=== PATIENT | female | born 1960 | race Caucasian/White ===

== ENCOUNTER 2019-11-04 12:54 | Outpatient (RCR) | payer BC, SELFPAY | END 2019-11-26 00:01 | LOC: SPT 12:54 | PROVIDERS: Family Provider Family Medicine; Visit Provider Licensed Practical Nurse | DX: M50.020 Cervical disc disorder with myelopathy, mid-cervical region, unspecified level (principal) | CPT/HCPCS: 97110 ×2; 97162; G0283 ×2 ==

== ENCOUNTER → 2019-12-19 07:56 | Outpatient (BNVA) | payer BC, SELFPAY | PROVIDERS: Family Provider Family Medicine; PCP Family Medicine; Referring Provider Licensed Practical Nurse; Visit Provider Psychiatry & Neurology Neurology | DX: G56.03 Carpal tunnel syndrome, bilateral upper limbs (principal) | CPT/HCPCS: 95886; 95910 ==

== ENCOUNTER 2019-12-27 10:02 | Outpatient (RCR) | payer BC, SELFPAY | END 2019-12-27 10:10 | disposition home or self-care (01) | LOC: SPT 10:02 | PROVIDERS: Family Provider Family Medicine; PCP Family Medicine; Visit Provider Licensed Practical Nurse | DX: M50.020 Cervical disc disorder with myelopathy, mid-cervical region, unspecified level (principal) | CPT/HCPCS: 97110; G0283 ==

== ENCOUNTER 2020-01-30 07:40 | Day surgery (SDC) | payer BC, SELFPAY ==
[2020-01-29 17:31] VITALS: BMI 32.2
[2020-01-30 08:04] VITALS: BP 134/86; PULSE 71; RESP 18; TEMP 36.2; O2SAT 95
[2020-01-30 08:24] LABS: Glucose Point of Care 215 mg/dL (70-110)
[2020-01-30] MEDS: sodium chloride 0.9% 1,000 ML 30 ML IV (08:29)
--- NOTE | 2020-01-30 08:40 | ANES.PREANE2 ---
Pre-Anesthetic Assessment Pre-Anesthetic Assessment: Height/Weight: Height 1.6 m Weight 82.554 kg Temp Pulse Resp BP Pulse Ox 97.1 F L 71 18 134/86 95 01/30/20 08:04 01/30/20 08:04 01/30/20 08:04 01/30/20 08:04 01/30/20 08:04 Preop Diagnosis: Bilateral carpal tunnel syndrome Proposed Procedure: Operation Date: 01/30/20 09:10 Proposed Procedures p Median Nerve Release/open right wrist 41082 G56.03(Right) - Ayden Werner MD Last intake: Intake Last Liquid Date 01/29/20 Last Liquid Time 19:00 Last Solid Date 01/29/20 Last Solid Time 19:00 Social: Packs per day: 1/5 Pack years: 4 Comment: quit of year Exam: Pre-Anes Outpt Exam: alert, oriented x 3, clear to auscultation bilaterally and regular rate & rhythm Airway: Submandibular: WNL Cervical ROM: WNL MP: 2 Dentition: Caps Additional comments: left top 2nd and a molar intact/not loose CV/HEM: CV/HEM: HTN Comments: rx x 2 years 2 blocks/FOS without angina/MONTERO Metabolic: Metabolic: DM (rx'd 20y, normally 150-250) Anesthetic Plan: ASA status: 3 Anesthesia: MAC Meds/Allergies Current Medications: Current Medications Generic Name Dose Route Start Last Admin Trade Name Freq PRN Reason Stop Dose Admin Sodium Chloride 1,000 mls @ 30 ml s/hr 01/30/20 08:00 01/30/20 08:29 Sodium Chloride 0.9% IV 01/31/20 07:59 30 mls/hr .Q24H NADYA Administration PFSH Anesthesia PFSH: Social History Smoking and tobacco status: never smoked Alcohol intake: never Lives independently: Yes Marital status: / Current occupational status: retired History of recent travel: No Data Anesthesia Other Labs: Laboratory Results - last 48 hr 01/30/20 08:21 POC Glucose 215 Cardiac Studies: No Data to Display
[2020-01-30 08:51] LABS: Anion Gap 17.6 (5-19); Blood Urea Nitrogen 18 mg/dL (6-20); Calcium 9.8 mg/dL (8.5-10.5); Carbon Dioxide 25 mmol/L (22-29); Chloride 99 mmol/L (98-107); Glomerular Filtration Rate 85.6 mL/min (90-130); Glucose 241 mg/dL (65-115); Osmolality Calculated 288 mOsm/kg (285-295); Potassium 4.6 mmol/L (3.5-5.1); Sodium 137 mmol/L (136-145)
--- NOTE | 2020-01-30 09:03 | P.HPUD_ITS ---
Surgery/Procedure H&P Update DATE OF PROCEDURE: January 30, 2020 DATE H&P PERFORMED: 01/29/20 H&P UPDATE INFORMATION: I have reviewed H&P completed within last 30 days, No changes to prior documentation and [place] [facility] [place] indicated PREOP DIAGNOSIS: Bilateral carpal tunnel syndrome PRIMARY INDICATION FOR PROCEDURE: Pain PLANNED PROCEDURE: Operation Date: 01/30/20 09:10 Proposed Procedures Median Nerve Release/open right wrist 44220 G56.03(Right) - Ayden Werner MD
--- NOTE | 2020-01-30 09:25 | P.OP_ITS ---
Brief Operative Note: Date of procedure: 01/30/20 Pre-op diagnosis: Median nerve entrapment at the right wrist Post-op diagnosis: same Procedure Done: Open release of the median nerve at the right wrist. Surgeon: Ayden Werner Estimated blood loss (mL): 5 Complications: None Post-op Plan: Home per Ambulatory Surgery protocol. Condition: stable Disposition: same day Coding Level of Care Code Acute Cardiology Clinical Consultant for Lakisha Sifuentes
[2020-01-30] MEDS: neomycin-poly-bacitracin oint 28 gm 1 APPLIC TOPICAL (09:54)
[2020-01-30 10:17] VITALS: BP 115/74; PULSE 86; RESP 18; TEMP 36.1; O2SAT 94
[2020-01-30 10:56] VITALS: BP 125/87; PULSE 72; RESP 18; TEMP 36.3
--- NOTE | 2020-01-30 12:20 | PM.OP ---
Operative Report Date of procedure: January 30, 2020 Pre-op Diagnosis: Bilateral carpal tunnel syndrome Post-op diagnosis: same Procedure Done: Open release of the median nerve at the right wrist. Pathology: none sent Surgeon: Ayden Werner Anesthesia: MAC Estimated blood loss (mL): 5 IV fluids (mL): 400 Complications: None Condition: stable Disposition: same day Brief History: The patient is a 59-year-old female with symptomatic, electrodiagnostically confirmed bilateral carpal tunnel syndrome. Symptoms progressed and were refractory to conservative treatment measures, including wrist splinting. Electrodiagnostic studies identified moderately severe median nerve entrapment at the wrists. After review of the diagnostic and treatment options with the risks/potential benefits/rationale for each, the patient requested to proceed with open release of the median nerve at the right wrist. Surgical intervention on the left wrist is anticipated after adequate recovery from surgery on the right. Procedure: After routine preoperative evaluation and informed consent were obtained, the patient was taken to the Operating Room and positioned supine on the operating table. She was maintained under intravenous sedation by Anesthesia personnel. The right upper extremity was extended on an arm board. A proposed palmar incision was marked with a sterile skin marker. The extremity was scrubbed with Betadine and prepped with DuraPrep from the fingertips to the axilla. Sterile towels, sterile drapes, and a sterile stockinette were utilized for draping of the operative field. An opening was fashioned in the sterile stockinette over the palmar aspect of the right hand. An Ioban surgical barrier was placed. The proposed incision site was infiltrated with 1% Xylocaine with Epinephrine. A skin incision was made and carried down into the subcutaneous tissues. Self-retaining retractors were placed. The thickened transverse carpal ligament was divided over the course of the median nerve in the palm. The ligament was divided distally until the palmar fat pad was encountered. Proximally, the ligament was divided with fine Metzenbaum scissors to a point approximately 2 centimeters above the wrist crease. There were scattered epineural adhesions, which were treated with limited adhesiolysis. There was no evidence of residual median nerve impingement or entrapment within the visualized segment of the nerve at the completion of the procedure. The wound was then copiously irrigated with antibiotic irrigation. Hemostasis was ensured with the bipolar electrocautery. Wound closure was performed as a single layer utilizing 4-0 Nylon in a simple interrupted fashion. Antibiotic ointment was placed along the incision line. A bulky hand dressing was fashioned utilizing a combination of Kerlix fluffs, a Kerlix wrap, and an JYOTI/elastic bandage. The patient was transported to the Ambulatory Surgery Area for discharge home, as per the Ambulatory Surgery protocol. The patient tolerated the procedure well. All sponge, needle, and instrument counts were correct at the completion of the procedure.
== END 2020-01-30 11:31 | disposition home or self-care (01) ==
PROVIDERS: Anesthesiology; Family Provider Family Medicine; PCP Family Medicine; Visit Provider Specialist
PROC: (CPT 64721; principal; 2020-01-30 09:10)
DX: G56.03 Carpal tunnel syndrome, bilateral upper limbs (principal); F17.220 Nicotine dependence, chewing tobacco, uncomplicated; I10 Essential (primary) hypertension; E11.9 Type 2 diabetes mellitus without complications; Z79.4 Long term (current) use of insulin
CPT/HCPCS: 64721; 12345; 36415; 36416; 80048; 82962; J0690; J2001; J2250; J2704; J3490; J7030

== ENCOUNTER 2020-03-23 13:09 | Day surgery (SDC) | payer BC, SELFPAY ==
[2020-03-20 10:26] VITALS: BMI 32.5
[2020-03-23 13:15] VITALS: BP 155/95; PULSE 85; TEMP 36.6; O2SAT 95
--- NOTE | 2020-03-23 13:46 | P.HPUD_ITS ---
Surgery/Procedure H&P Update DATE OF PROCEDURE: March 23, 2020 DATE H&P PERFORMED: 03/19/20 H&P UPDATE INFORMATION: I have reviewed H&P completed within last 30 days and [place] [facility] [place] date indicated PREOP DIAGNOSIS: Median nerve entrapment at the left wrist PRIMARY INDICATION FOR PROCEDURE: pain/numbness PLANNED PROCEDURE: Operation Date: 03/23/20 14:45 Proposed Procedures Open Release of Median Nerve Release left wrist 85010 G56.01(Left) - Ayden Werner MD
--- NOTE | 2020-03-23 13:48 | PM.OP2 ---
 Brief Operative Note: Date of procedure: 03/23/20 Pre-op diagnosis: Median nerve entrapment at left wrist Post-op diagnosis: same Procedure Done: Open release of median nerve at left wrist. Surgeon: Ayden Werner Estimated blood loss (mL): 5 Complications: None Post-op Plan: Home Condition: stable Disposition: same day Coding Level of Care Code Acute Wringer And Setter for Lakisha Sifuentes
--- NOTE | 2020-03-23 13:55 | ANES.PREANE2 ---
Pre-Anesthetic Assessment Pre-Anesthetic Assessment: Height/Weight: Height 1.6 m Weight 83.461 kg Preop Diagnosis: Median nerve entrapment at the left wrist Proposed Procedure: Operation Date: 03/23/20 14:45 Proposed Procedures p Open Release of Median Nerve Release left wrist 09977 G56.01(Left) - Ayden Werner MD Familial anesthetic complications: None Was Beta Pan taken within 24 hours: N/A Last intake: NPo > 8 hrs Social: Social History: No alcohol and No tobacco Exam: Pre-Anes Outpt Exam: alert, oriented x 3, clear to auscultation bilaterally and regular rate & rhythm Airway: Cervical ROM: WNL MP: 2 Dentition: Full Pulmonary: Pulmonary: None reported CV/HEM: CV/HEM: HTN : : None reported Hepatic: Hepatic: None reported GI: GI: None reported Metabolic: Metabolic: DM and Morbid obesity Musc/skel: Comments: shoulder (r) painful - feels like its broken - no position of the arm makes it worse. Neuropsych: Neuropsych: Neuropathy Comments: R arm Anesthetic Plan: ASA status: 2 Anesthesia: General Risk of > 500 ml blood loss (7ml/kg in children): No PFSH Anesthesia PFSH: Social History Smoking and tobacco status: never smoked Alcohol intake: never Lives independently: Yes Marital status: / Current occupational status: retired History of recent travel: No Data Anesthesia Cardiac Studies: No Data to Display
[2020-03-23 14:10] LABS: Glucose Point of Care 183 mg/dL (70-110)
[2020-03-23] MEDS: sodium chloride 0.9% 1,000 ML 30 ML IV (14:25)
[2020-03-23] MEDS: neomycin-poly-bacitracin oint 28 gm 1 APPLIC TOPICAL (15:04)
[2020-03-23 15:25] VITALS: BP 108/63; PULSE 78; RESP 18; TEMP 36.2
[2020-03-23 15:54] VITALS: BP 131/85; PULSE 79; RESP 18
--- NOTE | 2020-03-23 17:00 | PM.OP ---
Operative Report Date of procedure: March 23, 2020 Pre-op Diagnosis: Median nerve entrapment at the left wrist Post-op diagnosis: same Procedure Done: Open release of the median nerve at the left wrist. Pathology: none sent Surgeon: Ayden Werner Anesthesia: MAC and Local Estimated blood loss (mL): 5 IV fluids (mL): 300 Complications: none Condition: stable Disposition: same day Brief History: The patient is a 59-year-old white female with symptomatic, electrodiagnostically confirmed median nerve entrapment at the wrists. Conservative management failed to provide adequate lasting symptom relief. She underwent open release of the median nerve at the right wrist on 01/30/2020, with benefit noted. After review of the diagnostic and treatment options with the risks/potential benefits/rationale for each, the patient requested to proceed with open release of the median nerve at the left wrist. Procedure: After routine preoperative evaluation and informed consent were obtained, the patient was taken to the Operating Room and positioned supine on the operating table. Anesthesia personnel monitored the patient, and maintained intravenous sedation. The left upper extremity was extended on an arm board. The proposed skin incision was marked with a sterile skin marker, beginning near the wrist crease and extending distally along a palmar crease to the base of the thumb. The left upper extremity was scrubbed with Betadine and prepped with DuraPrep from the fingertips to the axilla. A sterile stockinette was placed over the left upper extremity. The patient was draped with sterile towels and drapes. An opening was fashioned in the sterile stockinette over the palmar aspect of the left hand. Ioban surgical barrier was applied. The proposed incision site was infiltrated with 1% Xylocaine with Epinephrine. A skin incision was made with a sharp knife and carried down into the subcutaneous tissues. The markedly thickened transverse carpal ligament was identified and divided over the course of the median nerve in the palm. The nerve was directly visualized as the ligament was divided. Decompression was extended distally until the palmar fat pad was encountered. Proximally, the decompression was extended above the wrist crease utilizing fine Metzenbaum scissors. Decompression was verified to be adequate for a distance of greater than 2 centimeters proximal to the wrist crease. At the completion of the decompression, there was no evidence of residual impingement or tethering of the median nerve at the surgical site. The wound was then copiously irrigated with antibiotic irrigation. Hemostasis was ensured with the bipolar electrocautery. Wound closure was performed as a single layer utilizing 4-0 Nylon in a simple interrupted fashion. Antibiotic ointment was placed along the incision line. A bulky hand dressing was fashioned utilizing Kerlix fluffs, a Kerlix wrap, and an JYOTI/elastic bandage. The patient was transferred onto the transport cart and returned to the Ambulatory Surgery Area for discharge home, as per the Ambulatory Surgery protocol. She tolerated the procedure well. All sponge, needle and instrument counts were correct at the completion of the procedure.
== END 2020-03-23 16:25 ==
PROVIDERS: Family Provider Family Medicine; PCP Family Medicine; Visit Provider Specialist
PROC: (CPT 64721; principal; 2020-03-23 14:35)
DX: G56.02 Carpal tunnel syndrome, left upper limb (principal); I10 Essential (primary) hypertension; E66.01 Morbid (severe) obesity due to excess calories; Z68.32 Body mass index [BMI] 32.0-32.9, adult; E11.40 Type 2 diabetes mellitus with diabetic neuropathy, unspecified; Z79.4 Long term (current) use of insulin
CPT/HCPCS: 64721; 12345; 36416; 82962; J0690; J2001; J2250; J2704; J3010; J3490; J7030

== ENCOUNTER → 2020-05-12 08:49 | Outpatient (BNVA) | payer BC, SELFPAY | PROVIDERS: Family Provider Family Medicine; PCP Family Medicine; Referring Provider Family Medicine; Visit Provider Orthopaedic Surgery | DX: M25.511 Pain in right shoulder (principal) | CPT/HCPCS: 73030 ==

== ENCOUNTER → 2020-08-04 10:03 | Outpatient (BNVA) | payer BC, SELFPAY | PROVIDERS: Family Provider Family Medicine; PCP Family Medicine; Visit Provider Internal Medicine | DX: Z11.59 Encounter for screening for other viral diseases (principal) | CPT/HCPCS: 87635 ==

== ENCOUNTER 2020-08-06 08:40 | Day surgery (SDC) | payer BC, SELFPAY ==
[2020-08-05 09:45] VITALS: BMI 31.8
[2020-08-06] VITALS (7 sets, daily range): BP systolic 129–159; BP diastolic 67–92; PULSE 70–78; RESP 16–20; TEMP 36.1–36.2; O2SAT 93–100
--- NOTE | 2020-08-06 09:19 | W.PM.OPSUD ---
Surgery/Procedure H&P Update DATE OF PROCEDURE: August 06, 2020 DATE H&P PERFORMED: 07/21/20 PREOP DIAGNOSIS: Right rotator cuff PLANNED PROCEDURE: Operation Date: 08/06/20 10:45 Proposed Procedures p Shoulder Arthroscopy 93878 M75.101(Right) - Lance Baires MD s Rotator Cuff Repair(Right) - Lance Baires MD
[2020-08-06 09:23] LABS: Glucose Point of Care 138 mg/dL (70-110)
[2020-08-06] MEDS: sodium chloride 0.9% 1,000 ML 30 ML IV (09:25)
--- NOTE | 2020-08-06 09:39 | P.ANESASSM_ITS ---
Pre-Anesthetic Assessment Pre-Anesthetic Assessment: Height/Weight: Height 1.6 m Weight 81.647 kg Temp Pulse Resp BP Pulse Ox 97.0 F L 74 18 159/67 97 08/06/20 09:11 08/06/20 09:11 08/06/20 09:11 08/06/20 09:11 08/06/20 09:11 Preop Diagnosis: Right rotator cuff Proposed Procedure: Operation Date: 08/06/20 10:45 Proposed Procedures p Shoulder Arthroscopy 13086 M75.101(Right) - Lance Baires MD s Rotator Cuff Repair(Right) - Lance Baires MD Familial anesthetic complications: None Was Beta Pan taken within 24 hours: N/A Last intake: Intake Last Liquid Date 08/05/20 Last Liquid Time 23:00 Last Solid Date 08/05/20 Last Solid Time 21:00 Social: Social History: No alcohol and No tobacco Exam: Pre-Anes Outpt Exam: alert, oriented x 3, clear to auscultation bilat erally and regular rate & rhythm Airway: Cervical ROM: WNL MP: 2 Dentition: Full Metabolic: Metabolic: DM Anesthetic Plan: ASA status: 2 Anesthesia: General and Regional (specify below) Risk of > 500 ml blood loss (7ml/kg in children): No Meds/Allergies Current Medications: Current Medications Generic Name Dose Route Start Last Admin Trade Name Freq PRN Reason Stop Dose Admin Sodium Chloride 1,000 mls @ 30 ml s/hr 08/06/20 09:00 08/06/20 09:25 Sodium Chloride 0.9% IV 08/07/20 08:59 30 mls/hr .Q24H NADYA Administration PFSH Anesthesia PFSH: Medical History Carpal tunnel syndrome, bilateral upper limbs Cervical disc disorder with myelopathy of mid-cervical region Diabetes Entrapment of left ulnar nerve at elbow Hypertension Surgical History History of colon resection History of total hysterectomy Social History Smoking and tobacco status: never smoked Alcohol intake: never Lives independently: Yes Marital status: / Current occupational status: retired History of recent travel: No Data Anesthesia Other Labs: Laboratory Results - last 48 hr 08/06/20 09:17 POC Glucose 138 Cardiac Studies: No Data to Display
--- NOTE | 2020-08-06 09:57 | ANES.PROC ---
Anesthesia Procedures Procedure/Date: 08/06/20 Nerve Block ^: Nerve Block 1: Main Anesthesia: general anesthesia Time Out Performed: Yes Consent: requested by attending/covering physician, from patient, risks and benefits reviewed and patient agrees to proceed Anesthesia monitors applied: pulse oximetry, EKG, BP cuff and oxygen Nerve block position: semi sitting Anesthetic Used: ropivicaine 0.5% and with decadron (3 mg) Amount of anesthesia used (mL): 20 Ultrasound used to: recognize landmarks, visualize and ID brachial plexus and visualize and ID interscalene groove Nerve Stimulator Used?: No Interscalene/Femoral BLK: 2 stimuplex 22 g needle used for position and inplane approach, visualize local anesthetic spread and no vascular puncture identified Injection: neg aspiration of heme Patient Tolerated Procedure: well Complications: none
--- NOTE | 2020-08-06 10:51 | SUR.OPER ---
1050 - Pt's sister notified of surgery start
--- NOTE | 2020-08-06 11:51 | P.OP_ITS ---
Operative Report Date of procedure: August 06, 2020 Pre-op Diagnosis: Right rotator cuff tear Post-op diagnosis: same Post-op Findings: Same Procedure Done: Arthroscopic right rotator cuff repair with bio inductive implant, subacromial decompression Implants: Regenerative bio inductive implant, 4.5 mm helical anchor Pathology: none sent Surgeon: Lance Baires Anesthesia: General and Nerve Block (Interscalene block) Estimated blood loss (mL): 50 Complications: None Findings: Patient had high-grade tearing of her anterior supraspinatus tendon with a component of articular surface tearing involving approximately 50% of the thickness of the rotator cuff and bursal tearing involving approximately 30% of the cuff with a tenuous thin layer of intrasubstance tendon remaining. The area tearing measured perhaps a centimeter and a half from anterior to posterior with approximately 8 mm of the retraction of the articular cuff. She had some mild s ubacromial spurring Condition: stable Disposition: PACU Procedure: The patient was taken to the operating room and given a general anesthesia. She was given 2 g of Ancef and positioned in the lateral position with the right arm in 10 and later 15 pounds of traction. A timeout was performed. The arm was prepped and draped in the usual fashion. A posterior portal was made 2 cm inferior medial to the posterior corner of the acromion. A scope cannula and trocar were driven into the glenohumeral joint. No specific chondromalacia or degenerative changes were seen over the humeral head or glenoid and the labrum and biceps tendon appeared healthy. Areas of articular sided tearing were seen over the leading edge of the supraspinatus tendon. Incisor shaver and Bailon and Nephew Werewolf probe were used to debride back unstable tendon revealing approximately 50% thickness tear of the leading edge of the supraspinatus tendon. Incisor was used to debride the footprint down to vascular bone to facilitate healing. The tear was marked with a spinal needle. The scope was then redirected to the subacromial space and anterior lateral working portal open. The abundant amounts of bursal tissue were removed with an incisor shaver and the acromion was outlined. The rotator cuff was inspected re vealing the area of bursal tearing with near complete communication with the articular tearing. It was not felt that this represented a biological healing problem and decision was made to proceed with a rotator cuff repair and a bio inductive implant. An incisor shaver was used to complete the tear centrally. Through a lateral stab wound a 4.5 mm helical anchor was placed. A Bailon and NephAlertEnterprise FirstPass suture passer was used to shuttle the arthro-tape suture approximately 8 mm from the edge of the posterior cuff and the second suture approximately 8 mm from the edge of the tendon through the anterior cuff. This was secured drawing the cuff to bone. To a more lateral stab wound the Bailon and Nephew Regeneten implant was introduced over the repair overlying the debrided bone. It was fixed medially with 4 soft tissue stables and laterally with 3 bone stable covering the repair and the debrided tuberosity. Shoulder was irrigated with saline. Portals were closed with 3-0 Prolene. S terile dressings were applied. The patient was extubated, placed in a sling,. and taken to recovery room in stable condition
--- NOTE | 2020-08-06 13:10 | ANE.PACU2 ---
Inpatient post-anesthesia follow up: Airway intact: Yes Vital signs: Temperature 97 F Pulse Rate 74 Respiratory Rate 16 Blood Pressure 142/92 Pulse Oximetry 97 Oxygen Delivery Me thod Room Air Oxygen Flow Rate 2 Fraction of Inspir ed Oxygen Hydration adequate: Yes Nausea and vomiting: No Pain level: 1 Mental status: Baseline
== END 2020-08-06 13:16 | disposition home or self-care (01) ==
PROVIDERS: PCP Family Medicine; Visit Provider Orthopaedic Surgery
PROC: (CPT 29805; principal; 2020-08-06 10:45)
PROC: (CPT 29827; 2020-08-06 10:45)
DX: M75.101 Unspecified rotator cuff tear or rupture of right shoulder, not specified as traumatic (principal); E11.9 Type 2 diabetes mellitus without complications; I10 Essential (primary) hypertension; Z90.49 Acquired absence of other specified parts of digestive tract
CPT/HCPCS: 29827; 12345; 36416; 82962; 96365; C1713; J0690; J1100; J2405; J2704; J2710; J2795; J3010; J3490; J7030

== ENCOUNTER 2020-08-27 06:00 | Outpatient (RCR) | payer BC, SELFPAY | END 2020-09-26 23:59 | disposition home or self-care (01) | LOC: SPT 06:00 | PROVIDERS: PCP Family Medicine; Referring Provider Orthopaedic Surgery; Visit Provider Orthopaedic Surgery | DX: Z47.89 Encounter for other orthopedic aftercare (principal) | CPT/HCPCS: 97110; 97162 ==

== ENCOUNTER 2020-09-27 06:00 | Outpatient (RCR) | payer BC, SELFPAY | END 2020-10-26 23:59 | disposition home or self-care (01) | LOC: SPT 06:00 | PROVIDERS: PCP Family Medicine; Referring Provider Orthopaedic Surgery; Visit Provider Orthopaedic Surgery | DX: Z47.89 Encounter for other orthopedic aftercare (principal) | CPT/HCPCS: 97110 ==

== ENCOUNTER 2020-10-27 06:00 | Outpatient (RCR) | payer BC, SELFPAY | END 2020-11-13 23:00 | disposition home or self-care (01) | LOC: SPT 06:00 | PROVIDERS: PCP Family Medicine; Referring Provider Orthopaedic Surgery; Visit Provider Orthopaedic Surgery | DX: Z47.89 Encounter for other orthopedic aftercare (principal) | CPT/HCPCS: 97110 ==

== ENCOUNTER → 2021-05-26 14:23 | Outpatient (BNVA) | payer OTHER, SELFPAY | PROVIDERS: PCP Family Medicine; Visit Provider Registered Nurse Neonatal Intensive Care | DX: R50.9 Fever, unspecified (principal) | CPT/HCPCS: 87635 ==

== ENCOUNTER → 2022-05-19 11:12 | Outpatient (BNVA) | payer OTHER, SELFPAY | PROVIDERS: PCP Family Medicine; Visit Provider Family Medicine | DX: E11.9 Type 2 diabetes mellitus without complications (principal); E78.00 Pure hypercholesterolemia, unspecified; Z12.31 Encounter for screening mammogram for malignant neoplasm of breast; Z12.11 Encounter for screening for malignant neoplasm of colon; Z00.00 Encounter for general adult medical examination without abnormal findings; I10 Essential (primary) hypertension; Z79.4 Long term (current) use of insulin | CPT/HCPCS: 80053; 80061; 83036; 85025 ==

== ENCOUNTER 2022-08-05 15:09 | Outpatient (CLI) | payer OTHER, SELFPAY ==
--- NOTE | 2022-08-05 15:20 | MM_ITS ---
WS: [id number] BILATERAL 3D TOMOSYNTHESIS DIGITAL SCREENING MAMMOGRAPHY WITH CAD CLINICAL INFORMATION: screening exam HISTORY: Screening mammogram. No current complaints. COMPARISON: 2019 TECHNIQUE: Bilateral CC and MLO views. FINDINGS: Scattered fibroglandular densities bilaterally. A few incidental punctate calcifications. No suspicio us focal mass, asymmetry, calcifications, or architectural distortion. No evidence of malignancy. MM/[place] [id number] IMPRESSION: BI-RADS: 2-Benign FOLLOW UP: 1 Year Follow-up Recommend return to annual screening mammography.
== END 2022-08-05 15:10 | disposition home or self-care (01) ==
PROVIDERS: PCP Family Medicine; Visit Provider Family Medicine
DX: Z12.31 Encounter for screening mammogram for malignant neoplasm of breast (principal)
CPT/HCPCS: 77063; 77067

== ENCOUNTER 2022-09-07 06:32 | Day surgery (SDC) | payer OTHER, SELFPAY ==
[2022-09-05 09:19] VITALS: BMI 31.1
[2022-09-07 07:24] VITALS: BP 156/97; PULSE 83; RESP 16; TEMP 36.1; O2SAT 95
[2022-09-07] MEDS: sodium chloride 0.9% 1,000 ML 30 ML IV (07:34)
--- NOTE | 2022-09-07 07:37 | ANES.PREANE2 ---
Pre-Anesthetic Assessment Height/Weight: Height 1.57 m Weight 77.111 kg Temp Pulse Resp BP Pulse Ox O2 Del Method 97.0 F L 83 16 156/97 95 09/07/22 07:24 09/07/22 07:24 09/07/22 07:24 09/07/22 07:24 09/07/22 07:24 09/07/22 07:24 Preop Diagnosis: Right rotator cuff tear Operation Date: 09/07/22 08:00 Proposed Procedures p Colonoscopy 13365,Z12.11(Not Applicable) - Beau Mckeon DO Familial anesthetic complications: None Was Beta Pan taken within 24 hours: N/A Was Clonidine taken within 24 hours: N/A Last intake: Intake Last Liquid Date 09/06/22 Last Liquid Time 20:00 Last Solid Date 09/05/22 Last Solid Time 08:00 Social No alcohol and No tobacco Exam alert, oriented x 3, clear to auscultation bilaterally and regular rate & rhythm Airway Mallampati: Class III Dentition: caps CV/HEM Hypertension Metabolic Diabetes Mellitus and Morbid Obesity Anesthetic Plan ASA status: 3 Anesthesia: MAC Risk of > 500 ml blood loss (7ml/kg in children): No Medications/Allergies Home Medications Medication Instructions Recorded Confirmed Last Taken Type aspirin 81 mg tablet,delayed 81 mg PO DAILY 08/05/20 09/05/22 09/03/22 History release blood-glucose sensor (Dexcom G6 #3 ea 05/19/22 06/28/22 Unknown Rx Sensor device) blood-glucose transmitter (Dexcom #1 ea 05/19/22 06/28/22 Unknown Rx G6 Transmitter device) insulin regular human 100 unit/mL 30 unit (0.3 mL) SUBCUT BID #30 mL 05/19/22 09/05/22 09/06/22 Rx injection solution (Novolin R Regular U-100 Insulin) lisinopril 10 mg tablet 10 mg PO QDAY 90 days #90 tabs 06/06/22 09/05/22 09/04/22 Rx insulin detemir U-100 100 unit/mL 100 unit SUBCUT DAILY 09/05/22 09/05/22 09/06/22 History subcutaneous solution (Levemir U-100 Insulin) pregabalin 50 mg capsule (Lyrica) 50 mg PO BID 09/05/22 09/05/22 08/27/22 History Allergies Allergy/AdvReac Type Severity Reaction Status Date / Time ibuprofen Allergy Severe air way Verified 09/05/22 09:18 closes off,coughing, flu symptoms naproxen Allergy Severe swelling Verified 09/05/22 09:18 Current Medications Generic Name Dose Route Start Last Admin Trade Name Trentq PRN Reason Stop Dose Admin Sodium Chloride 1,000 mls @ 30 mls/hr 09/07/22 07:00 09/07/22 07:34 Sodium Chloride 0.9% IV 09/08/22 06:59 30 mls/hr .Q24H NADYA Administration PFSH Anesthesia Medical History Carpal tunnel syndrome, bilateral upper limbs Cervical disc disorder with myelopathy of mid-cervical region Diabetes Entrapment of left ulnar nerve at elbow Hypercholesteremia Hypertension Surgical History History of colon resection History of total hysterectomy Hx of colonoscopy Social History Smoking and tobacco status: never smoked Alcohol intake: never Lives independently: Yes Marital status: / Current occupational status: retired History of recent travel: No Data Anesthesia Cardiac Studies: No Data to Display
[2022-09-07 07:39] LABS: Glucose Point of Care 127 mg/dL (70-110)
--- NOTE | 2022-09-07 08:09 | PM.HP ---
Providers/Chief Complaint Primary Care Provider: Boyd Delgado MD Chief Complaint: encounter for screening for malignant History of Present Illness Teresa Greer is a 61 year old female here for colonoscopy Medications/Allergies Home Medications Medication Instructions Recorded Confirmed Last Taken Type aspirin 81 mg tablet,delayed 81 mg PO DAILY 08/05/20 09/05/22 09/03/22 History release blood-glucose sensor (Dexcom G6 #3 ea 05/19/22 06/28/22 Unknown Rx Sensor device) blood-glucose transmitter (Dexcom #1 ea 05/19/22 06/28/22 Unknown Rx G6 Transmitter device) insulin regular human 100 unit/mL 30 unit (0.3 mL) SUBCUT BID #30 mL 05/19/22 09/05/22 09/06/22 Rx injection solution (Novolin R Regular U-100 Insulin) lisinopril 10 mg tablet 10 mg PO QDAY 90 days #90 tabs 06/06/22 09/05/22 09/04/22 Rx insulin detemir U-100 100 unit/mL 100 unit SUBCUT DAILY 09/05/22 09/05/22 09/06/22 History subcutaneous solution (Levemir U-100 Insulin) pregabalin 50 mg capsule (Lyrica) 50 mg PO BID 09/05/22 09/05/22 08/27/22 History Allergies Allergy/AdvReac Type Severity Reaction Status Date / Time ibuprofen Allergy Severe air way Verified 09/05/22 09:18 closes off,coughing, flu symptoms naproxen Allergy Severe swelling Verified 09/05/22 09:18 PFSH Acute PFSH: Medical History Carpal tunnel syndrome, bilateral upper limbs Cervical disc disorder with myelopathy of mid-cervical region Diabetes Entrapment of left ulnar nerve at elbow Hypercholesteremia Hypertension Surgical History History of colon resection History of total hysterectomy Hx of colonoscopy Social History Smoking and tobacco status: never smoked Alcohol intake: never Lives independently: Yes Marital status: / Current occupational status: retired History of recent travel: No Vitals/I&O/Wt Last Vital Signs Temp 97.0 F L 09/07/22 07:24 Pulse 83 09/07/22 07:24 Resp 16 09/07/22 07:24 BP 156/97 09/07/22 07:24 Pulse Ox 95 09/07/22 07:24 O2 Del Method 09/07/22 07:24 Weight last 48 hrs Weight 170 lb A&P Assessment and plan (1) Colon cancer screening: Plan Colonoscopy Attestations Medical Necessity Statement*: Home Coding Level of Care Code 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
[2022-09-07 08:40] VITALS: BP 132/68; PULSE 71; RESP 18; TEMP 36.4; O2SAT 97
--- NOTE | 2022-09-07 08:42 | ANE.PACU2 ---
Inpatient post-anesthesia follow up: Airway intact: Yes Vital signs: Temperature 97.5 F Pulse Rate 71 Respiratory Rate 18 Blood Pressure 132/68 Pulse Oximetry 97 Oxygen Delivery Me thod Room Air Oxygen Flow Rate Fraction of Inspir ed Oxygen Hydration adequate: Yes Nausea and vomiting: No Pain level: 1 Mental status: Baseline
[2022-09-07 09:01] VITALS: BP 165/98; PULSE 71; RESP 18; TEMP 36.2; O2SAT 100
== END 2022-09-07 09:09 | disposition home or self-care (01) ==
PROVIDERS: PCP Family Medicine; Visit Provider Surgery
PROC: 0DJD8ZZ Inspection of Lower Intestinal Tract, Via Natural or Artificial Opening Endoscopic (ICD-10-PCS; CPT 45378; principal; 2022-09-07 08:00)
DX: Z12.11 Encounter for screening for malignant neoplasm of colon (principal); D12.2 Benign neoplasm of ascending colon; K51.40 Inflammatory polyps of colon without complications; K57.30 Diverticulosis of large intestine without perforation or abscess without bleeding; Z79.82 Long term (current) use of aspirin; E11.9 Type 2 diabetes mellitus without complications; Z79.4 Long term (current) use of insulin; E78.00 Pure hypercholesterolemia, unspecified; I10 Essential (primary) hypertension
CPT/HCPCS: 36416; 45385; 82962; 88305; J2704; J7030

== ENCOUNTER → 2023-06-05 09:40 | Outpatient (BNVA) | payer OTHER, SELFPAY | PROVIDERS: PCP Family Medicine; Visit Provider Family Medicine | DX: I10 Essential (primary) hypertension (principal); E11.9 Type 2 diabetes mellitus without complications | CPT/HCPCS: 80053; 83036; 85025 ==

== ENCOUNTER 2023-08-15 12:41 | Outpatient (CLI) | payer OTHER, SELFPAY ==
--- NOTE | 2023-08-15 12:59 | MM_ITS ---
WS: [id number] BILATERAL 3D TOMOSYNTHESIS DIGITAL SCREENING MAMMOGRAPHY WITH CAD CLINICAL INFORMATION: SCREENING HISTORY: Screening mammogram. No current complaints. COMPARISON: 08/05/2022 TECHNIQUE: Bilateral CC and MLO views. FINDINGS: Scattered fibroglandular densities bilaterally. No suspicious focal mass, asymmetry, calcifications, or architectural distortion. No evidence of malignancy. A few incidental punctate calcifications. Vas cular calcification. IMPRESSION: MM/[place] [id number] BI-RADS: 2-Benign FOLLOW UP: 1 Year Follow-up Recommend return to annual screening mammography.
== END 2023-08-15 12:42 | disposition home or self-care (01) ==
PROVIDERS: PCP Family Medicine; Visit Provider Family Medicine
DX: Z12.31 Encounter for screening mammogram for malignant neoplasm of breast (principal)
CPT/HCPCS: 77063; 77067

== ENCOUNTER → 2024-01-26 10:20 | Outpatient (BNVA) | payer OTHER, SELFPAY | PROVIDERS: PCP Family Medicine; Visit Provider Registered Nurse Neonatal Intensive Care | DX: R39.9 Unspecified symptoms and signs involving the genitourinary system (principal); R30.0 Dysuria | CPT/HCPCS: 81000; 87086 ==

== ENCOUNTER 2024-03-06 12:33 | Outpatient (CLI) | payer OTHER, SELFPAY ==
--- NOTE | 2024-03-06 12:42 | XRR_ITS ---
PROCEDURE INFORMATION: Exam: XR Right Foot Exam date and time: 03/06/2024 12:48 PM Age: 63 years old Clinical indication: Injury or trauma; Fall; Blunt trauma; Foot; Right; Injury date: 3 days ago; Additional info: Pain 5th metatarsal TECHNIQUE: Imaging protocol: Radiologic exam of the right foot. Views: 3 or more views. COMPARISON: No relevant prior studies available. FINDINGS: Bones/joints: No fracture or other acute abnormality. There is a nonacute prominent ossicle abutting the lateral margin of the base of the 5th metatarsal which could represent a ununited apophysis versus calcification in a tendon. There is narrowing of the 1st MTP joint. The foot is otherwise normal. Soft tissues: Normal. XR/XR foot RT min 3V* [id number] IMPRESSION: Probable nonacute findings.
== END 2024-03-06 12:34 | disposition home or self-care (01) ==
LOC: RAD 12:36
PROVIDERS: PCP Family Medicine; Visit Provider Family Medicine
DX: S93.601A Unspecified sprain of right foot, initial encounter (principal); W19.XXXA Unspecified fall, initial encounter
CPT/HCPCS: 73630

== ENCOUNTER → 2024-03-21 09:42 | Outpatient (BNVA) | payer OTHER, SELFPAY | PROVIDERS: PCP Family Medicine; Visit Provider Podiatrist Foot & Ankle Surgery | DX: M84.30XA Stress fracture, unspecified site, initial encounter for fracture; S86.301A Unspecified injury of muscle(s) and tendon(s) of peroneal muscle group at lower leg level, right leg, initial encounter; X58.XXXA Exposure to other specified factors, initial encounter; E11.9 Type 2 diabetes mellitus without complications; Z79.4 Long term (current) use of insulin | CPT/HCPCS: 73630 ==

== ENCOUNTER 2024-04-17 16:30 | Outpatient (CLI) | payer OTHER, SELFPAY ==
--- NOTE | 2024-04-17 16:45 | MR_ITS ---
WS: [id number] EXAMINATION: MR foot RT wo con* [id number] ORDER DATE: 04/17/2024 4:45 PM COMPARISON: Radiograph 03/21/2024 HISTORY: Evaluation for torn tendon and stress fracture TECHNIQUE: Sagittal T1, sagittal STIR, coronal PD, coronal T2, axial T1, axial T2, and axial PD imagi ng with fat saturation technique. FINDINGS: Achilles enthesophyte. Stable chronic appearing ossicle adjacent to the base of the fifth m etatarsal. Area of interest overlying the shaft of the fifth metatarsal indicated with a marker. Norm al bone marrow signal in the shaft of the fifth metatarsal. No visualized fracture or stress fracture in the fifth metatarsal shaft or head. First through fourth metatarsals are normal in appearance. Mild degenerative arthritis in the first MTP. Normal bone mecca ow signal in the navicular and cuneiforms. Normal cuboid. Small amount of retrocalcaneal bursitis j luis ng the distal Achilles. Visualized Achilles appears intact. Slight tenosynovitis along the peroneal t endon sheath. Normal plantar aponeurosis. Normal talonavicular articulation. Small amount of tenosyno vitis along the extensor compartment tendons. ATF appears intact. Normal ankle mortise. Normal medial and lateral malleolus. Subchondral cystic changes involving the talocalcaneal articulation at the po sterior facet. MR/MR foot RT wo con* [id number] IMPRESSION: 1. No focal abnormalities in the area of concern deep to the palpable marker o verlying the shaft of the fifth metatarsal. 2. Mild joint arthritis at the first MTP. 3. Subchondral cystic changes involving the posterior talar facet at the taloc alcaneal articulation. 4. Small amount of tenosynovitis along the peroneal tendon sheath and extensor compartment tendons. Peroneal tendons appear intact. 5. Additional nonacute findings described above.
== END 2024-04-17 16:31 | disposition home or self-care (01) ==
LOC: RAD 16:31
PROVIDERS: PCP Family Medicine; Visit Provider Podiatrist Foot & Ankle Surgery
DX: M85.671 Other cyst of bone, right ankle and foot (principal); M13.871 Other specified arthritis, right ankle and foot; M77.51 Other enthesopathy of right foot and ankle
CPT/HCPCS: 73718

== ENCOUNTER → 2024-05-15 10:36 | Outpatient (BNVA) | payer OTHER, SELFPAY | PROVIDERS: PCP Family Medicine; Visit Provider Family Medicine | DX: E11.9 Type 2 diabetes mellitus without complications (principal); Z79.4 Long term (current) use of insulin | CPT/HCPCS: 83036 ==

== ENCOUNTER 2024-09-30 13:17 | Outpatient (CLI) | payer OTHER, SELFPAY ==
--- NOTE | 2024-09-30 13:19 | MM_ITS ---
WS: [id number] BILATERAL 3D TOMOSYNTHESIS DIGITAL SCREENING MAMMOGRAPHY WITH CAD CLINICAL INFORMATION: SCREENING HISTORY: Screening mammogram. No current complaints. COMPARISON: 2022 TECHNIQUE: Bilateral CC and MLO views. FINDINGS: Scattered fibroglandular densities bilaterally. No suspicious focal mass, asymmetry, calcifications, or architectural distortion. No evidence of malignancy. Vascular calcifications. MM/MM scr tomosynthesis [id number] IMPRESSION: DENSITY: There are scattered areas of fibroglandular density. BI-RADS: 2 - Benign. FOLLOW UP: 1 Year Follow-up Recommend return to annual screening mammography.
== END 2024-09-30 13:18 | disposition home or self-care (01) ==
LOC: RAD 13:18
PROVIDERS: PCP Family Medicine; Visit Provider Family Medicine
DX: Z12.31 Encounter for screening mammogram for malignant neoplasm of breast (principal); R92.323 Mammographic fibroglandular density, bilateral breasts; R92.1 Mammographic calcification found on diagnostic imaging of breast
CPT/HCPCS: 77063; 77067

== ENCOUNTER → 2024-10-07 10:51 | Outpatient (BNVA) | payer OTHER, SELFPAY | PROVIDERS: PCP Family Medicine; Visit Provider Family Medicine | DX: E11.9 Type 2 diabetes mellitus without complications (principal); Z79.4 Long term (current) use of insulin | CPT/HCPCS: 80053; 83036; 85025 ==

== ENCOUNTER → 2025-07-08 12:48 | Outpatient (BNVA) | payer OTHER, SELFPAY | PROVIDERS: PCP Family Medicine; Visit Provider Family Medicine | DX: I25.10 Atherosclerotic heart disease of native coronary artery without angina pectoris (principal); R58 Hemorrhage, not elsewhere classified | CPT/HCPCS: 80053; 83036; 85025 ==

== ENCOUNTER 2025-11-03 14:36 | Outpatient (CLI) | payer MEDICARE, BC, SELFPAY ==
--- NOTE | 2025-11-03 14:42 | MM_ITS ---
WS: [id number] BILATERAL 3D TOMOSYNTHESIS DIGITAL SCREENING MAMMOGRAPHY WITH CAD CLINICAL INFORMATION: SCREENING HISTORY: Screening mammogram. No current complaints. COMPARISON: 2023 TECHNIQUE: Bilateral CC and MLO views. FINDINGS: Scattered fibroglandular densities bilaterally. No suspicious focal mass, asymmetry, calcifications, or architectural distortion. No evidence of malignancy. Vascular calcification. MM/MM scr tomosynthesis [id number] IMPRESSION: DENSITY: There are scattered areas of fibroglandular density. BI-RADS: 2 - Benign. FOLLOW UP: 1 Year Follow-up Recommend return to annual screening mammography.
== END 2025-11-03 14:37 | disposition home or self-care (01) ==
LOC: RAD 14:37
PROVIDERS: PCP Family Medicine; Visit Provider Family Medicine
DX: Z12.31 Encounter for screening mammogram for malignant neoplasm of breast (principal); R92.323 Mammographic fibroglandular density, bilateral breasts; R92.1 Mammographic calcification found on diagnostic imaging of breast
CPT/HCPCS: 77063; 77067